=== PATIENT | female | born 1960 | race Caucasian/White ===

== ENCOUNTER → 2017-09-14 | Outpatient (CLI) | payer OTHER | END | disposition home or self-care (01) | LOC: RAH 10:00 | PROVIDERS: ATTEND Family Medicine | DX: Z12.31 Encounter for screening mammogram for malignant neoplasm of breast (principal) | CPT/HCPCS: 77067 ==

== ENCOUNTER → 2019-06-03 | Outpatient (CLI) | payer OTHER | END | disposition home or self-care (01) | LOC: RAH 11:01 | PROVIDERS: ATTEND Family Medicine | DX: Z12.31 Encounter for screening mammogram for malignant neoplasm of breast (principal) | CPT/HCPCS: 77067 ==

== ENCOUNTER 2019-09-09 09:51 | Emergency (ER) | payer OTHER ==
[2019-09-09] MEDS ORDERED: TETANUS/DIPHTHERIA TOXOID [ADULT] 0.5 ML VIAL IM ONE (10:11)
== END 2019-09-09 10:23 | disposition home or self-care (01) ==
LOC: EDH 09:51
DX: S81.051A Open bite, right knee, initial encounter (principal); W54.0XXA Bitten by dog, initial encounter; Y93.89 Activity, other specified; Y92.89 Other specified places as the place of occurrence of the external cause; Y99.8 Other external cause status
CPT/HCPCS: 90471; 90714

== ENCOUNTER → 2020-07-06 | Outpatient (CLI) | payer OTHER | END | disposition home or self-care (01) | LOC: RAH 08:25 | PROVIDERS: ATTEND Family Medicine | DX: Z12.31 Encounter for screening mammogram for malignant neoplasm of breast (principal) | CPT/HCPCS: 77067 ==

== ENCOUNTER → 2022-07-11 | Outpatient (CLI) | payer OTHER | END | disposition home or self-care (01) | LOC: RAH 13:14 | PROVIDERS: ATTEND Family Medicine | DX: Z12.31 Encounter for screening mammogram for malignant neoplasm of breast (principal) | CPT/HCPCS: 77067 ==

== ENCOUNTER → 2023-06-08 | Outpatient (CLI) | payer OTHER | END | disposition home or self-care (01) | LOC: RAH 14:20 | PROVIDERS: ATTEND Family Medicine | DX: R51.9 Headache, unspecified (principal) | CPT/HCPCS: 70450 ==

== ENCOUNTER → 2024-03-02 | Outpatient (CLI) | payer OTHER ==
[~2024-03-02] MED LIST: ACET-2079 PO; CEPH500B PO
== END | disposition home or self-care (01) ==
LOC: RAH 11:08
PROVIDERS: ATTEND Family Medicine
DX: Z12.31 Encounter for screening mammogram for malignant neoplasm of breast (principal)
CPT/HCPCS: 77067

== ENCOUNTER → 2024-03-10 | Outpatient (CLI) | payer OTHER | END | disposition home or self-care (01) | LOC: RAH 08:02 | PROVIDERS: ATTEND Family Medicine | DX: Z13.6 Encounter for screening for cardiovascular disorders (principal); I25.10 Atherosclerotic heart disease of native coronary artery without angina pectoris | CPT/HCPCS: 75571 ==

== ENCOUNTER → 2024-09-06 | Outpatient (CLI) | payer OTHER ==
--- NOTE | 2024-09-06 09:21 | HMCIMG ---
SACROILIAC JTS 3+VWS HISTORY: Sacrococcygeal disorder COMPARISON: None TECHNIQUE: 3 images of sacroiliac joints were obtained. FINDINGS: There are bilateral sacroiliac joint space narrowing. There is no acute displaced fracture or dislocation. Degenerative changes are seen. IMPRESSION: 1. Findings as described above.
--- NOTE | 2024-09-06 12:32 | HMCIMG ---
US PELVIC NON-OB COMP HISTORY: Intra-abdominal swelling COMPARISON: None TECHNIQUE: Transabdominal pelvic ultrasound study was performed. FINDINGS: The uterus measures 5.4 x 2.9 x 4 cm. Both ovaries are not seen. No adnexal mass is seen. Degenerative thickness is 2 mm. There is possible lipoma in the suprapubic region at the region of interest measuring 13 x 7 x 18 mm. There are bilateral inguinal lymph nodes with right measuring 14 x 20 x 9 mm and left measuring 7 x 4 x 7 mm. No free fluid is seen in the cul-de-sac. IMPRESSION: 1. No adnexal mass is seen. There is possible lipoma in the suprapubic region at the region of interest measuring 13 x 7 x 18 mm. There are bilateral inguinal lymph nodes with right measuring 14 x 20 x 9 mm and left measuring 7 x 4 x 7 mm.
== END | disposition home or self-care (01) ==
LOC: RAH 08:20
PROVIDERS: ATTEND Family Medicine
DX: M46.1 Sacroiliitis, not elsewhere classified (principal); R19.00 Intra-abdominal and pelvic swelling, mass and lump, unspecified site; M53.3 Sacrococcygeal disorders, not elsewhere classified
CPT/HCPCS: 72202; 76856

== ENCOUNTER → 2025-03-07 | Outpatient (CLI) | payer OTHER ==
--- NOTE | 2025-03-08 12:28 | HMCIMG ---
BILATERAL BREAST ULTRASOUND: Finding: Real-time examination of the both breasts demonstrates heterogeneous echotexture throughout both the breasts without evidence of focal solid or cystic masses. Right axilla has a benign-appearing lymph node measuring 1.3 x 0.4 x 1.2 cm. IMPRESSION: Dense breasts with no solid mass seen. I would recommend annual mammography with tomography with bilateral breast sonogram. FINAL ASSESSMENT: ACR: BI-RAD- 2. Benign Finding.
== END | disposition home or self-care (01) ==
LOC: RAH 10:42
PROVIDERS: ATTEND Family Medicine
DX: Z12.31 Encounter for screening mammogram for malignant neoplasm of breast (principal); R92.333 Mammographic heterogeneous density, bilateral breasts
CPT/HCPCS: 77067